=== PATIENT | male | born 1965 | race Caucasian/White ===

== ENCOUNTER 2017-05-13 09:42 | Emergency (ER) | payer MEDICAID ==
[~2017-05-13] VITALS: Ht 180.3 cm; Wt 57.2 kg
--- NOTE | 2017-05-13 09:42 | NUR ---
Patient BIBA ACLS, transferred to bed 4. RN evaluating patient at bedside.
[2017-05-13 09:44] VITALS: BP 110/65
--- NOTE | 2017-05-13 09:45 | NUR ---
51/M BIBA FROM FIELD AFTER SYNCOPAL EPISODE WITH LACERATION TO OCCIPITAL AREA. AWAKE AND ALERT ON ARRIVAL, STOMACH PROBLEMS. PT STATES HAS L CHEST PAIN REDIATES TO LEFT SHOULDER AT THIS TIME . DENIES N/V/D; AAOX4 WITH EVEN AND STEADY GAIT; LUNGS CLEAR BL; HR EVEN AND REGULAR; PT DENIES ANY FEVER OR COUGH AT THIS TIME; PATIENT STATES PAIN OF 5/10 AT THIS TIME; VSS; PATIENT POSITIONED FOR COMFORT; HOB ELEVATED; BEDRAILS UP X2; BED DOWN. ER MD MADE AWARE OF PT STATUS.
--- NOTE | 2017-05-13 09:52 | NUR ---
EKG AT BEDSIDE.
[2017-05-13] MEDS ORDERED: LIDOCAINE VISCOUS 2% 20 ML UDC PO ONE (09:55)
[2017-05-13] MEDS ORDERED: DICYCLOMINE HCL LIQUID 10 MG/5 ML UDC PO ONE (09:55)
[2017-05-13] MEDS ORDERED: ALUMINUM HYD/MAG/SIMETHICONE 30 ML UDC PO ONE (09:55)
--- NOTE | 2017-05-13 10:01 | NUR ---
ER MD DR NICOLE EVALUATING PT AT BEDSIDE.
--- NOTE | 2017-05-13 10:04 | NUR ---
BLOOD SUGAR 103 MG/DL. AAO X 4.I V CATH 18G LAC. IV PATENT/INTACT.
--- NOTE | 2017-05-13 10:24 | NUR ---
PT TAKEN AT CT VIA [facility] ACCOMPANIED BY [facility].
--- NOTE | 2017-05-13 10:31 | NUR ---
LAB AT BEDSIDE.
--- NOTE | 2017-05-13 10:31 | NUR ---
BACK FROM CT.
--- NOTE | 2017-05-13 10:37 | NUR ---
Patient appears to be resting comfortably in bed. Vital Signs within normal limits. Respirations even and unlabored.WILL CONTINUE TO MONITOR.
[2017-05-13 10:46] LABS: BASOPHILS # (AUTO) 0.2 K/uL (0.00-0.22); BASOPHILS % (AUTO) 2.5 % (0.0-2.0); EOSINOPHILS # (AUTO) 0.1 K/uL (0-0.4); EOSINOPHILS % (AUTO) 1.5 % (0.0-4.0); HEMATOCRIT 40.7 % (36-52); HEMOGLOBIN 13.6 g/dL (12.0-18.0); LYMPHOCYTES # (AUTO) 1.9 K/uL (2.0-11.5); LYMPHOCYTES % (AUTO) 18.7 % (20.5-51.1); MEAN CORPUSCULAR HEMOGLOBIN 30 pg (27-31); MEAN CORPUSCULAR HGB CONC 34 g/dL (33-37); MEAN CORPUSCULAR VOLUME 91 fL (80-94); MONOCYTES # (AUTO) 0.8 K/uL (0.8-1.0); NEUTROPHILS % (AUTO) 69.3 % (42.2-75.2); PLATELET COUNT (AUTO) 259 K/uL (140-450); RED BLOOD CELL COUNT(AUTO) 4.49 MIL/uL (4.20-6.10); RED CELL DISTRIBUTION WIDTH 12.4 % (11.6-13.7)
[2017-05-13 10:58] LABS: AMPHETAMINE, URINE NEG. ng/ml (NEG <=1000); BARBITURATE, URINE NEG. ng/ml (NEG <=200); BENZODIAZEPINE, URINE NEG. ng/mL (NEG <=200); CANNABINOID, URINE POS. ng/mL (NEG <=50); COCAINE, URINE NEG. ng/mL (NEG <=300); OPIATE, URINE POS. ng/mL (NEG <=2000); PHENCYCLIDINE SCREEN,URINE NEG. ng/mL (NEG <=25)
[2017-05-13 10:59] LABS: ANION GAP 10.7 (8-16); CALCIUM 7.6 mg/dL (8.5-10.1); CARBON DIOXIDE 24.7 mmol/L (21-32); CHLORIDE 109 mmol/L (98-107); GFR ARICAN-AMERICAN 102 mL/min (>90); GFR NON ARICAN-AMERICAN 84 mL/min (>90); GLUCOSE 101 mg/dL (74-106); POTASSIUM 4.4 mmol/L (3.5-5.1); SODIUM SERUM 140 mmol/L (136-145); UREA NITROGEN, BLOOD 14 mg/dL (7-18)
--- NOTE | 2017-05-13 11:00 | NUR ---
PT C/O TOOTHACHE X 3 DAYS.
[2017-05-13 11:09] LABS: ALANINE AMINOTRANSFERASE 35 U/L (16-63); ALBUMIN 3.3 g/dL (3.4-5.0); ALKALINE PHOSPHATASE 35 U/L (46-116); ASPARTATE AMINOTRANSFERASE 48 U/L (15-37); TOTAL BILIRUBIN 0.3 mg/dL (0.0-1.0)
[2017-05-13 11:10] LABS: ACETAMINOPHEN 1.4 ug/ml (10-30); ALCOHOL, BLOOD < 3 mg/dL (<3); CREATINE KINASE, TOTAL 168 U/L (39-308); SALICYLATE 5.3 mg/dL (2.8-20.0)
--- NOTE | 2017-05-13 11:30 | NUR ---
ER MD DR NICOLE EVALUATING PT AT BEDSIDE
[2017-05-13] MEDS ORDERED: LIDOCAINE/EPI 2% 1:100000 20 ML VIAL INJ ONE (11:35)
[2017-05-13 12:32] VITALS: BP 116/76
--- NOTE | 2017-05-13 12:32 | NUR ---
Patient discharged with v/s stable. Written and verbal after care instructions given and explained. Patient alert, oriented and verbalized understanding of instructions. Ambulatory with steady gait. All questions addressed prior to discharge. ID band removed. Patient advised to follow up with PMD. Rx of NORCO & AMOXICILLIN given. Patient educated on indication of medication including possible reaction and side effects. Opportunity to ask questions provided and answered.
== END 2017-05-13 12:32 | disposition home or self-care (01) ==
LOC: MED 09:42
DX: R55 Syncope and collapse (principal); K04.7 Periapical abscess without sinus; R31.9 Hematuria, unspecified; Z88.0 Allergy status to penicillin; K21.9 Gastro-esophageal reflux disease without esophagitis; F17.200 Nicotine dependence, unspecified, uncomplicated; F12.10 Cannabis abuse, uncomplicated; Z71.6 Tobacco abuse counseling
CPT/HCPCS: 12001; 36415; 70450; 71010; 80053; 80305; 81002; 82550; 82948; 84484; 85025; 87086; 90471; 90715; 93005; 99285; G0480; G0482; J2001; Q0092

== ENCOUNTER 2017-05-16 08:48 | Emergency (ER) | payer MEDICAID ==
[~2017-05-16] VITALS: Ht 180.3 cm; Wt 56.7 kg
[2017-05-16 08:56] VITALS: BP 98/67
--- NOTE | 2017-05-16 09:08 | NUR ---
PATIENT PRESENTS TO ED WITH FOR STAPLE REMOVAL TO BACK OF HEAD.GOOD WOUND HEALING PROCESS;NO INFXN NOTED;NO DRAINAGE NOTED; DENIES N/V/D; SKIN IS PINK/WARM/DRY; AAOX4 WITH EVEN AND STEADY GAIT; LUNGS CLEAR BL; HR EVEN AND REGULAR; PT DENIES ANY FEVER, CP, SOB, OR COUGH AT THIS TIME; PATIENT STATES PAIN OF 1/10 AT THIS TIME; VSS; PATIENT POSITIONED FOR COMFORT; HOB ELEVATED; BEDRAILS UP X2; BED DOWN. ER MD WILL BE NOTIFIED.
--- NOTE | 2017-05-16 09:14 | NUR ---
JORDYN CAMPOS AT [facility].
[2017-05-16 09:25] VITALS: BP 108/62
--- NOTE | 2017-05-16 09:25 | NUR ---
Patient discharged with v/s stable. Written and verbal after care instructions given and explained. Patient verbalized understanding. Ambulatory with steady gait. All questions addressed prior to discharge. Advised to follow up with PMD.
== END 2017-05-16 09:25 | disposition home or self-care (01) ==
LOC: MED 08:48
DX: S01.01XD Laceration without foreign body of scalp, subsequent encounter (principal); K21.9 Gastro-esophageal reflux disease without esophagitis; F17.210 Nicotine dependence, cigarettes, uncomplicated; F12.90 Cannabis use, unspecified, uncomplicated; Z88.0 Allergy status to penicillin; X58.XXXD Exposure to other specified factors, subsequent encounter
CPT/HCPCS: 99283